=== PATIENT | male | born 1955 | race Two or more races ===

== ENCOUNTER 2022-04-29 05:47 | Emergency (ER) | payer OTHER ==
[~2022-04-29] VITALS: Ht 188 cm; Wt 95.3 kg
[2022-04-29] MEDS ORDERED: methylPREDNISolone SOD SUCC 125 MG/2 ML VL IM ONE (06:45)
[2022-04-29] MEDS ORDERED: KETOROLAC TROMETH 60MG/2ML VIAL IM ONE (06:45)
[2022-04-29 07:33] VITALS: BP 122/80
[2022-04-29] MEDS ORDERED: PRED30TA4 PO (08:07)
[2022-04-29] MEDS ORDERED: NAP500T PO (08:07)
== END 2022-04-29 09:16 | disposition home or self-care (01) ==
LOC: ER 05:47
DX: M10.9 Gout, unspecified (principal); Z79.899 Other long term (current) drug therapy
CPT/HCPCS: 36415; 73630; 84550; 96372; 99284; J1885; J2930

== ENCOUNTER → 2022-05-03 | Emergency (ER) | payer MEDICAID, OTHER ==
[~2022-05-03] VITALS: Ht 188 cm; Wt 95.3 kg
[~2022-05-03] MED LIST: INDO25CA17 PO; KETOROLAC TROMETH 60MG/2ML VIAL IM ONE; NAP500T PO; PRED30TA4 PO
[2022-05-03 18:32] LABS: Albumin 4.3 g/dL (3.4-5.0); Calcium 9.3 mg/dL (8.5-10.1); Potassium 4.3 mmol/L (3.5-5.1)
[2022-05-03 18:33] LABS: Hematocrit 47.2 % (41.0-53.0); Hemoglobin 15.5 g/dL (13.5-17.5); Mean Corpuscular Hemoglobin 28.7 pg (28.0-32.0); Mean Corpuscular Volume 87.1 fL (80.0-100.0); Red Blood Cells 5.42 10^6/uL (4.5-5.90); Red Cell Distribution Width 13.1 % (11.8-14.3); White Blood Cell 8.3 10^3/uL (4.4-10.8)
[2022-05-03 18:36] LABS: BUN/Creatinine Ratio 18.2; Bilirubin, Total 0.4 mg/dL (0.2-1.0); Total Protein 7.8 g/dL (6.4-8.2)
[2022-05-03 19:02] LABS: Blast Cells 0; Eosinophils % (manual) 0 (0-7); Metamyelocytes % 0; Myelocytes % 0; Promyelocytes % 0
[2022-05-03 19:54] LABS: Band Neutrophils % (manual) 1; Basophils % (manual) 1 (0.0-2.0); Lymphocytes % (manual) 18 (10.0-50.0); Monocytes % (manual) 23 (0-12); Reactive Lymphocytes 4
[2022-05-03 20:00] VITALS: BP 140/78
== END | disposition home or self-care (01) ==
LOC: ER 15:43
DX: M10.9 Gout, unspecified (principal); R07.89 Other chest pain
CPT/HCPCS: 36415; 71046; 80053; 84550; 85007; 85027